=== PATIENT | male | born 1995 | race Hispanic/Latino ===

== ENCOUNTER 2018-03-04 05:41 | Emergency (ER) | payer MEDICARE ==
[~2018-03-04] VITALS: Ht 177.8 cm; Wt 117.9 kg
--- OUTSIDE RECORDS SUMMARY | 2018-03-04 05:43 | XMS REPORT ---
Author Author Admin, [facility] Address [address] [address] Phone Allergies, Adverse Reactions, Alerts Allergy Name Reaction Description Start Date Severity Status Provider No Known Allergies Ashlee Valverde MD Conditions or Problems Problem Name Problem Code Onset Date Status Entry Date Provider Comment Standard Description Annotate DEPRESSIVE DISORDER, MAJOR, RECURRENT EPISODE, MODERATE Active Ashlee Valverde MD Major depressive disorder, recurrent episode, moderate degree SCHIZOPHRENIA SPECTRUM AND OTHER PSYCHOTIC DISORDER, UNSPECIFIED Active Ashlee Valverde MD Unspecified psychosis Medication List Medication Instructions Start Date Stop Date Generic Name NDC Status Provider Patient Instruction SEROQUEL 50 MG TABS Take 1 tablet By Mouth every evening QUETIAPINE FUMARATE 01529820920 Active Ashlee Valverde MD Active Vital Signs Date Name Value Unit Range Description blood pressure, diastolic 80 mm[Hg] BP manley blood pressure, systolic 126 mm[Hg] BP sys height E&M 72 [in_us] Bdy height pulse rate E&M 79 /min Heart rate weight E&M 266 [lb_av] Weight Measured blood pressure, diastolic 88 mm[Hg] BP manley blood pressure, systolic 147 mm[Hg] BP sys height E&M 72 [in_us] Bdy height pulse rate E&M 93 /min Heart rate weight E&M 270.20 [lb_av] Weight Measured Diagnostic Results Date Name Value Unit Range Description Lab Report: CBC With Differential/Platelet, Comp. Metabolic Panel (14), ... - Hematology lymphocyte count, blood, automated 3.5 X10E3/UL 10*3/mm3 0.7-3.1 Lab Report: CBC With Differential/Platelet, Comp. Metabolic Panel (14), ... - Chemistry urea nitrogen, blood 9 mg/dL 6-20 Office Visit: Psychiatric Evaluation - Toxicology tricyclic antidrepressants, urine Negative Lab Report: CBC With Differential/Platelet, Comp. Metabolic Panel (14), ... - Chemistry creatinine, serum 0.96 mg/dL 0.76-1.27 chloride, serum 100 mmol/L 96-106 Lab Report: CBC With Differential/Platelet, Comp. Metabolic Panel (14), ... - Hematology mean corpuscular volume, RBC 77 fL 79-97 Lab Report: TSH+Free T4, T3 Uptake, Triiodothyronine,Free,Serum - Chemistry triiodothyronine, free, serum 4.2 pg/mL 2.3-5.0 Lab Report: CBC With Differential/Platelet, Comp. Metabolic Panel (14), ... - Chemistry triglyceride, serum, fasting 211 mg/dL 0-149 Lab Report: CBC With Differential/Platelet, Comp. Metabolic Panel (14), ... - Hematology erythrocyte (RBC) count 5.63 X10E6/UL 10*6/mm3 4.14-5.80 Lab Report: CBC With Differential/Platelet, Comp. Metabolic Panel (14), ... - Chemistry Estimated Glomerular Filtration Rate (calc) 113 mL/min/1.73m2 >59 Lab Report: CBC With Differential/Platelet, Comp. Metabolic Panel (14), ... - Hematology platelet count 425 X10E3/UL 10*3/mm3 764-619 3949/07/17 red blood cell distribution width 14.4 % 12.3-15.4 Lab Report: CBC With Differential/Platelet, Comp. Metabolic Panel (14), ... - Chemistry protein, total, serum 7.0 g/dL 6.0-8.5 HDL cholesterol, serum 30 mg/dL >39 albumin/globulin ratio, serum 1.7 1.2-2.2 Lab Report: CBC With Differential/Platelet, Comp. Metabolic Panel (14), ... - Hematology eosinophils as percent of blood leukocytes 3 % Lab Report: CBC With Differential/Platelet, Comp. Metabolic Panel (14), ... - Chemistry Absolute Neutrophils 4.9 X10E3/UL 10*3/uL 1.4-7.0 Lab Report: CBC With Differential/Platelet, Comp. Metabolic Panel (14), ... - Hematology basophil count, absolute 0.0 x10E3/uL 0.0-0.2 Lab Report: CBC With Differential/Platelet, Comp. Metabolic Panel (14), ... - Chemistry alanine aminotransferase (SGPT), serum 68 U/L 0-44 LDL cholesterol, serum 98 mg/dL 0-99 Office Visit: Psychiatric Evaluation - Toxicology phencyclidine screen, urine Negative ng/mL Lab Report: CBC With Differential/Platelet, Comp. Metabolic Panel (14), ... - Hematology monocytes as percent of blood leukocytes 9 % Office Visit: Psychiatric Evaluation - Urinalysis morphine drug screen, urine Negative Office Visit: Psychiatric Evaluation - Chemistry propoxyphene screen, urine Negative Lab Report: CBC With Differential/Platelet, Comp. Metabolic Panel (14), ... - Chemistry cholesterol, serum 170 mg/dL 100-199 Lab Report: CBC With Differential/Platelet, Comp. Metabolic Panel (14), ... - Hematology mean corpuscular hemoglobin concentration, RBC 34.6 G/DL % 31.5-35.7 hemoglobin, blood 14.9 g/dL 12.6-17.7 leukocyte count, blood 9.6 X10E3/UL 10*3/mm3 3.4-10.8 Office Visit: Psychiatric Evaluation - Urinalysis Oxycodone urine screening Negative Lab Report: CBC With Differential/Platelet, Comp. Metabolic Panel (14), ... - Hematology hematocrit, blood 43.1 % 37.5-51.0 Lab Report: CBC With Differential/Platelet, Comp. Metabolic Panel (14), ... - Chemistry globulin, serum 2.6 1.5-4.5 Office Visit: Psychiatric Evaluation - Toxicology barbiturates screen, urine Negative Lab Report: CBC With Differential/Platelet, Comp. Metabolic Panel (14), ... - Chemistry thyroid stimulating hormone, serum 4.480 u[iU]/mL 0.450-4.500 albumin, serum 4.4 g/dL 3.5-5.5 Office Visit: Psychiatric Evaluation - Urinalysis Ecstasy (MDMA) Screen, urine Negative Lab Report: CBC With Differential/Platelet, Comp. Metabolic Panel (14), ... - Chemistry very low density lipoproteins 42 mg/dL 5-40 calcium, serum 9.7 mg/dL 8.7-10.2 Lab Report: CBC With Differential/Platelet, Comp. Metabolic Panel (14), ... - Hematology basophils as percent of blood leukocytes 0 % Lab Report: TSH+Free T4, T3 Uptake, Triiodothyronine,Free,Serum - Chemistry thyroxine, serum, free 1.29 ng/dL 0.93-1.60 Lab Report: CBC With Differential/Platelet, Comp. Metabolic Panel (14), ... - Hematology monocyte count, blood, automated 0.8 X10E3/UL 10*3/uL 0.1-0.9 Lab Report: CBC With Differential/Platelet, Comp. Metabolic Panel (14), ... - Chemistry immature granulocytes, percentage of total cells, blood 0 % urea nitrogen/creatinine ratio, serum 9 9-20 Lab Report: CBC With Differential/Platelet, Comp. Metabolic Panel (14), ... - Genetics/fertility eGFR if 131 mL/min/1.73m2 >59 Office Visit: Psychiatric Evaluation - Toxicology opiates, urine, semiquantitative Negative Lab Report: CBC With Differential/Platelet, Comp. Metabolic Panel (14), ... - Hematology lymphocytes as percent of blood leukocytes 37 % Lab Report: CBC With Differential/Platelet, Comp. Metabolic Panel (14), ... - Chemistry carbon dioxide, venous blood 23 mmol/L 18-29 sodium, serum 141 mmol/L 294-712 5039/07/17 hemoglobin A1C, blood, as % of total hemoglobin 5.8 % 4.8-5.6 alkaline phosphatase, serum 91 U/L 39-117 Lab Report: TSH+Free T4, T3 Uptake, Triiodothyronine,Free,Serum - Chemistry triiodothyronine resin uptake 26 % 24-39 Office Visit: Psychiatric Evaluation - Urinalysis Methadone screen, urine Negative Lab Report: CBC With Differential/Platelet, Comp. Metabolic Panel (14), ... - Hematology Eosinophil Absolute Count 0.3 X10E3/UL 10*3/uL 0.0-0.4 Office Visit: Psychiatric Evaluation - Toxicology benzodiazepine screen, urine Negative cannabinoid screen, urine Negative ng/mL Lab Report: CBC With Differential/Platelet, Comp. Metabolic Panel (14), ... - Hematology mean corpuscular hemoglobin, RBC 26.5 pg 26.6-33.0 Lab Report: CBC With Differential/Platelet, Comp. Metabolic Panel (14), ... - Chemistry bilirubin, serum, total 0.3 mg/dL 0.0-1.2 Lab Report: CBC With Differential/Platelet, Comp. Metabolic Panel (14), ... - Hematology neutrophils as percent of blood leukocytes 51 % Lab Report: CBC With Differential/Platelet, Comp. Metabolic Panel (14), ... - Chemistry blood glucose, random 86 mg/dL 65-99 potassium, serum 4.4 mmol/L 3.5-5.2 aspartate aminotransferase (SGOT), serum 31 U/L 0-40 Encounters Date Encounter Provider Code Facility 10:44:25 CDT Est Patient Detailed - [id number] Ashlee Valverde MD CPT-42150 [facility] 20:05:58 [facility] Est Patient Detailed - [id number] Ashlee Valverde MD CPT-32139 [facility] 20:04:48 [facility] Est Patient Exp Problem - [id number] Ashlee Valverde MD CPT-62234 [facility] 13:37:28 CDT Est Patient Exp Problem - [id number] Ashlee Valverde MD CPT-60315 [facility] Procedures Code Procedure Name Date Entry Date Standard Description CPT-01916 Urine Drug Screen - In House 09:46:04 CDT CPT-18361 Lipid Panel - In House 09:45:15 CDT CPT-09908 HEMOGLOBIN A1C - In House 09:45:15 CDT CPT-76357 Diagnostic evaluation with medical - [id number] 09:45:12 CDT
[2018-03-04 06:20] LABS: BASOPHILS # (AUTO) 0.1 (0.0-0.1); BASOPHILS % 0.5 % (0.0-1.0); EOSINOPHILS # (AUTO) 0.4 (0.0-0.4); EOSINOPHILS % 3.4 % (0.0-6.0); HEMATOCRIT 45.5 % (38.2-49.6); HEMOGLOBIN 15.2 g/dL (14.0-18.0); LYMPHOCYTES # (AUTO) 4.3 (1.0-3.2); LYMPHOCYTES % 38.2 % (18.0-39.1); MEAN CORPUSCULAR HEMOGLOBIN 26.5 pg (28-32); MEAN CORPUSCULAR HGB CONC 33.4 g/dL (31-35); MEAN CORPUSCULAR VOLUME 79.3 fL (81-99); MONOCYTES # (AUTO) 0.7 (0.2-0.8); MONOCYTES % 6.3 % (4.4-11.3); NEUTROPHILS # (AUTO) 5.7 (2.1-6.9); NEUTROPHILS % 51.2 % (38.7-80.0); PLATELET COUNT 399 x10e3/uL (140-360); RED BLOOD COUNT 5.74 x10e6/uL (4.3-5.7); RED CELL DISTRIBUTION WIDTH 13.3 % (11.7-14.4)
[2018-03-04 06:37] LABS: ALANINE AMINOTRANSFERASE 63 IU/L (0-55); ALBUMIN 3.9 g/dL (3.5-5.0); ALBUMIN/GLOBULIN RATIO 1.1 (0.8-2.0); ALKALINE PHOSPHATASE 76 IU/L (40-150); ANION GAP 14.6 mmol/L (8-16); BLOOD UREA NITROGEN 13 mg/dL (7-26); BUN/CREATININE RATIO 15 (6-25); CALCIUM 10.1 mg/dL (8.4-10.2); CARBON DIOXIDE 24 mmol/L (22-29); CHLORIDE 101 mmol/L (98-107); CREATINE KINASE 115 IU/L (30-200); CREATININE, SERUM 0.84 mg/dL (0.72-1.25); EST GLOMERULAR FILTRATION RATE > 60 ML/MIN (60-); GLUCOSE 93 mg/dL (74-118); POTASSIUM 3.6 mmol/L (3.5-5.1); SODIUM 136 mmol/L (136-145)
--- NOTE | 2018-03-04 06:46 | Diagnostic Imaging Report ---
EXAMINATION: CHEST 2 VIEWS INDICATION: Chest discomfort. Midsternal chest pain. ^CHEST DISCOMFORT ^[id number] ^0612 ^Y COMPARISON: None FINDINGS: PA and lateral views TUBES and LINES: None. LUNGS: Lungs are well inflated. Lungs are clear. There is no evidence of pneumonia or pulmonary edema. PLEURA: No pleural effusion or pneumothorax. HEART AND MEDIASTINUM: The cardiomediastinal silhouette is unremarkable. BONES AND SOFT TISSUES: No acute osseous lesion. Soft tissues are unremarkable. UPPER ABDOMEN: No free air under the diaphragm. IMPRESSION: No acute thoracic abnormality. Signed by: DR. Red Dunn MD on 03/04/2018 6:43 AM
== END 2018-03-04 07:23 | disposition home or self-care (01) ==
LOC: ER 05:41
DX: R07.89 Other chest pain (principal); T43.215A Adverse effect of selective serotonin and norepinephrine reuptake inhibitors, initial encounter; T43.225A Adverse effect of selective serotonin reuptake inhibitors, initial encounter; F41.9 Anxiety disorder, unspecified; F32.9 Major depressive disorder, single episode, unspecified
CPT/HCPCS: 36415; 71046; 80053; 82550; 82553; 84484; 85025; 93005; 99284